=== PATIENT | male | born 1995 | race Caucasian/White ===

== ENCOUNTER 2017-06-25 14:28 | Emergency (ER) | payer OTHER, BC ==
[~2017-06-25] VITALS: Ht 182.9 cm; Wt 67.0 kg
[2017-06-25 14:37] VITALS: BP 132/77; PULSE 110; RESP 19; TEMP 98.4; O2SAT 97
[2017-06-25] MEDS ORDERED: ADDE15TA PO (14:41)
[2017-06-25] MEDS ORDERED: SODIUM CHLOR 0.9% 1000 ML INJ 1,000 ML IV ONE ×2 (14:45)
[2017-06-25 15:28] LABS: POTASSIUM 3.6 MEQ/L (3.5-5.1)
--- NOTE | 2017-06-25 15:29 | PD ---
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 Colleagues saw him slump over and syncopized. When they got to him he was sort of delirious. His a heart rate in the 170s. Patient states he felt lightheaded and dizzy. Heart rate was regular and narrow complex. Automotive Software Engineer Colace place an IV and given some fluids. When ambulance arrived his heart was done in the low 100s and is feeling improved. He does take Adderall. He otherwise has been feeling generally well. His exercise with vigorous but not harder than he does routinely. History Past Medical History Narrative Medical ADHD Tetanus Vaccination: < 5 Years Influenza Vaccination: No Social History Alcohol Use: Yes (SOCIAL) Tobacco Use: No Allergies-Medications (Allergen,Severity, Reaction): Coded Allergies: No Known Drug Allergies (Verified Allergy, Unknown, 06/25/17) Reported Meds & Prescriptions Reported Meds & Active Scripts Active Reported Adderall (Amphetamine-Dextroamphetamine) 15 Mg Tab 15 Mg PO DAILY Avoid late evening doses. Space doses at least 4 to 6 hours if more than once/day dosing. Review of Systems Except as stated in HPI: all other systems reviewed are Neg Physical Exam Narrative GENERAL: Well-appearing 19-year-old man, no acute distress. SKIN: Hot and sweaty. HEAD: Atraumatic. Normocephalic. EYES: Pupils equal and round. No scleral icterus. No injection or drainage. ENT: No nasal bleeding or discharge. Mucous membranes pink and moist. NECK: Trachea midline. No JVD. CARDIOVASCULAR: Regular rate and rhythm. No murmur appreciated. RESPIRATORY: No accessory muscle use. Clear to auscultation. Breath sounds equal bilaterally. GASTROINTESTINAL: Abdomen soft, non-tender, nondistended. Hepatic and splenic margins not palpable. MUSCULOSKELETAL: No obvious deformities. No edema. NEUROLOGICAL: Awake and alert. No obvious cranial nerve deficits. Motor grossly within normal limits. Normal speech. PSYCHIATRIC: Appropriate mood and affect; insight and judgment normal. Data Data Last Documented VS Vital Signs Date Time Temp Pulse Resp B/P (MAP) Pulse Ox O2 Delivery O2 Flow Rate FiO2 06/25/17 14:42 Room Air 06/25/17 14:37 98.4 110 19 132/77 (95) 97 Orders Orders Sodium Chlor 0.9% 1000 Ml Inj (Ns 1000 M (06/25/17 14:45) Sodium Chlor 0.9% 1000 Ml Inj (Ns 1000 M (06/25/17 14:45) Basic Metabolic Panel (Bmp) (06/25/17 14:37) Iv Access Insert/Monitor (06/25/17 14:37) Electrocardiogram (06/25/17 ) Labs Laboratory Tests Test 06/25/17 14:50 [facility] Medical Decision Making Medical Screen Exam Complete: Yes Emergency Medical Condition: Yes Differential Diagnosis He exhaustion, syncope, arrhythmia, electrolyte abnormality, other Narrative Course Medical decision making a 21-year-old man presents with probably heat exhaustion and syncope. I reviewed the EMS tracings rapid heart rate. Shows heart rate in the 160s, sinus rhythm, narrow complex. He looks well now. IV fluids. We'll check a lecture widespread likely discharge. Diagnosis Primary Impression: Heat exhaustion Additional Instructions: Drink plenty fluids stay well-hydrated. Return to the emergency department for any new or worsening symptoms. Med/Other Pt SpecificInfo: No Change to Meds Disposition: 01 DISCHARGE HOME Condition: Stable Masood Rausch MD Jun 25, 2017 15:29
[2017-06-25 16:28] VITALS: BP 129/75
--- NOTE | 2017-06-25 21:24 | EKG ---
Date Performed: 06/25/2017 Time Performed: 14:40:28 PTAGE: 21 years EKG: SINUS TACHYCARDIA POSSIBLE LEFT ATRIAL ENLARGEMENT RSR prime leads V1 and V2 NONSPECIFIC T- WAVE ABNORMALITY ABNORMAL RHYTHM ECG NO PREVIOUS TRACING DOCTOR: Carrington Garay Interpretating Date/Time 06/25/2017 21:22:31
== END 2017-06-25 16:29 | disposition home or self-care (01) ==
LOC: NEPD 14:28
DX: T67.5XXA Heat exhaustion, unspecified, initial encounter (principal); R55 Syncope and collapse; R00.0 Tachycardia, unspecified; R94.31 Abnormal electrocardiogram [ECG] [EKG]; Z86.59 Personal history of other mental and behavioral disorders; X58.XXXA Exposure to other specified factors, initial encounter; Y99.0 Civilian activity done for income or pay
CPT/HCPCS: 80048; 93005; 96360; 99284; J7030